=== PATIENT | female | born 1995 | race African-American/Black ===

== ENCOUNTER 2022-04-17 17:05 | Emergency (ER) | payer OTHER ==
[~2022-04-17] VITALS: Ht 160 cm; Wt 145.1 kg
== END 2022-04-17 17:30 | disposition home or self-care (01) ==
LOC: ER 17:16
DX: R30.0 Dysuria (principal); N39.0 Urinary tract infection, site not specified; R10.30 Lower abdominal pain, unspecified
CPT/HCPCS: 99282

== ENCOUNTER 2023-02-20 18:49 | Emergency (ER) | payer OTHER ==
[~2023-02-20] VITALS: Ht 160 cm; Wt 140.6 kg
[2023-02-20] MEDS ORDERED: ACETAMINOPHEN 325 MG TAB PO STA (19:15)
[2023-02-20] MEDS ORDERED: ACETAMINOPHEN 325 MG TAB ONE (19:27)
[2023-02-20 19:47] LABS: CLARITY,URINE CLEAR (CLEAR); COLOR,URINE YELLOW (YELLOW)
[2023-02-20 19:48] LABS: LEUKOCYTE ESTERASE ,URINE NEGATIVE (NEGATIVE); NITRITE,URINE NEGATIVE (NEGATIVE)
[2023-02-20 19:49] LABS: KETONES,URINE TRACE (NEGATIVE); PROTEIN,URINE DIPSTICK NEGATIVE (NEGATIVE); URINE UROBILINOGEN 1 mg/dL (0.2 - 1)
[2023-02-20 19:58] LABS: BACTERIA,URINE MODERATE /HPF; EPITHELIAL CELLS,URINE MODERATE /LPF
[2023-02-20 20:49] VITALS: BP 135/86; PULSE 84; RESP 16; TEMP 98.3; O2SAT 100
== END 2023-02-20 20:52 | disposition home or self-care (01) ==
LOC: ER 18:52
DX: O20.0 Threatened abortion (principal); Z3A.00 Weeks of gestation of pregnancy not specified
CPT/HCPCS: 36415; 81001; 84702; 99283